=== PATIENT | male | born 1965 | race Caucasian/White ===

== ENCOUNTER 2021-06-04 15:02 | Emergency (ER) | payer OTHER ==
[~2021-06-04] VITALS: Ht 175.3 cm; Wt 90.7 kg
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
[2021-06-04] MEDS ORDERED: IBUPROFEN 600 MG TABLET PO ONE (15:30)
[2021-06-04] MEDS ORDERED: IBUP-1957 PO (16:42)
[2021-06-04] MEDS ORDERED: IBUPROFEN 600 MG TABLET ONE (16:52)
--- NOTE | 2021-06-04 17:25 | NUR ---
ROCIO SPLINT APPLIED BY PHYSICIAN RELATIONS MANAGER.
--- NOTE | 2021-06-04 17:35 | NUR ---
Patient discharged in custody in stable condition. Written and verbal after care instructions given. Patient verbalizes understanding of instruction.
[2021-06-04 17:36] VITALS: BP 141/88
== END 2021-06-04 17:36 ==
LOC: ER 15:04
DX: S62.347A Nondisplaced fracture of base of fifth metacarpal bone, left hand, initial encounter for closed fracture (principal); F32.A Depression, unspecified; M19.90 Unspecified osteoarthritis, unspecified site; Z88.8 Allergy status to other drugs, medicaments and biological substances; Z60.2 Problems related to living alone; Y04.0XXA Assault by unarmed brawl or fight, initial encounter; Y93.89 Activity, other specified; Y92.89 Other specified places as the place of occurrence of the external cause; Y99.8 Other external cause status
CPT/HCPCS: 73130-TC